=== PATIENT | male | born 1970 | race Two or more races ===

== ENCOUNTER 2024-11-24 13:39 | Inpatient (IN) | payer MEDICAID ==
[~2024-11-24] VITALS: Ht 165.1 cm; Wt 61.7 kg
[2024-11-24] MEDS ORDERED: ONDANSETRON HCL/PF 4 MG/2 ML VIAL ONE (14:10)
[2024-11-24] MEDS ORDERED: TDAP [DIPH/PERTUSSIS/TET] 0.5 ML VIAL IM ONE (14:10)
[2024-11-24] MEDS ORDERED: MORPHINE SULFATE INJ 4 MG/ML DISP.SYRIN ONE ×2 (14:10→14:33)
[2024-11-24] MEDS: ONDANSETRON HCL/PF 4 MG/2 ML VIAL IVP ONE (14:17)
[2024-11-24] MEDS: TDAP [DIPH/PERTUSSIS/TET] 0.5 ML VIAL IM ONE (14:17)
[2024-11-24] MEDS: MORPHINE SULFATE INJ 2 MG/ML DISP.SYRIN IV ONE (14:23)
[2024-11-24 14:31] LABS: BASOPHILS # (AUTO) 0.1 K/uL (0.0-0.2); BASOPHILS % (AUTO) 0.7 % (0.0-2.0); EOSINOPHILS # (AUTO) 0.1 K/uL (0.0-0.7); EOSINOPHILS % (AUTO) 0.9 % (0.0-6.0); HEMATOCRIT 48 % (39-51); HEMOGLOBIN 16.6 g/dL (13.5-17.5); LYMPHOCYTES % (AUTO) 31.4 % (20.0-44.0); MEAN CORPUSCULAR HEMOGLOBIN 33 PG (26.0-33.0); MEAN CORPUSCULAR HGB CONC 35 g/dl (31.0-36.0); MEAN CORPUSCULAR VOLUME 95 fL (80-96); MONOCYTES # (AUTO) 0.5 K/uL (0.1-1.30); MONOCYTES % (AUTO) 5.5 % (2.0-12.0); NEUTROPHILS # (AUTO) 5.9 K/uL (1.8-8.9); NEUTROPHILS % (AUTO) 61.5 % (43.0-81.0); PLATELET COUNT (AUTO) 300 K/uL (150-450); RED BLOOD CELL COUNT(AUTO) 5.05 MIL/uL (4.5-6.0); RED CELL DISTRIBUTION WIDTH 14.2 % (11.5-15.0); WHITE BLOOD COUNT (AUTO) 9.5 K/uL (4.3-11.0)
[2024-11-24] MEDS: IV NS 0.9% 1,000 ML BAG IV ONE (14:31)
[2024-11-24] MEDS: CEFAZOLIN 2 GM in IV D5W 100 ML IV ONE (14:31)
[2024-11-24 14:38] LABS: CALCIUM, SERUM 9.6 mg/dL (8.5-10.1); POTASSIUM 3.2 mmol/L (3.5-5.1)
[2024-11-24 14:48] LABS: PARTIAL THROMBOPLASTIN TIME 23.2 SEC (24.3-34.3); PROTHROMBIN TIME 10.6 SECS (9.2-11.1)
[2024-11-24] MEDS ORDERED: HYDROMORPHONE 1 MG/1 ML DISP.SYRIN ONE (15:42)
[2024-11-24] MEDS: HYDROMORPHONE 1 MG/1 ML DISP.SYRIN IV ONE (15:54)
[2024-11-24] MEDS ORDERED: ONDANSETRON HCL/PF 4 MG/2 ML VIAL IVP PRN (16:00)
[2024-11-24] MEDS ORDERED: ACETAMINOPHEN 325 MG TABLET PO PRN (16:00)
[2024-11-24] MEDS ORDERED: MAG HYDROX/AL HYDROX/SIMETH 30 ML UDC PO PRN ×2 (16:00→16:15)
[2024-11-24] MEDS ORDERED: MAGNESIUM HYDROXIDE 30 ML UDC PO PRN ×2 (16:00→16:15)
[2024-11-24] MEDS ORDERED: Z GUARD REMEDY 4 OZ OINT TP PRN ×2 (16:00→16:15)
[2024-11-24] MEDS ORDERED: VANCOMYCIN 1 GM VIAL ONE (19:01)
[2024-11-24] MEDS ORDERED: BUPIVACAINE 0.5 % PF 150 MG/30 ML VIAL ONE (19:01)
[2024-11-24] MEDS ORDERED: ANESTHESIA TRAY IN PYXIS 1 EA TRAY MC ONE (19:02)
[2024-11-24] MEDS ORDERED: MIDAZOLAM HCL 2 MG/2ML VIAL ONE (19:24)
[2024-11-24] MEDS ORDERED: FENTANYL PF 100MCG/2ML AMPUL ONE (19:24)
[2024-11-24 20:00] VITALS: BP 117/71; TEMP 98; O2SAT 98
[2024-11-24] MEDS: FENTANYL PF 100MCG/2ML AMPUL IV PRN (21:16)
[2024-11-24] MEDS ORDERED: CEFAZOLIN 1 GM ONE (23:54)
[2024-11-24] MEDS ORDERED: IV PREMIX D5 1/2NS + KCL 1,000 ML IV ONE (23:55)
[2024-11-25] MEDS: Potassium Chloride 20 MEQ in IV D5/0.45 NACL 1,000 ML IV PRN (01:10)
[2024-11-25] MEDS: HYDROCODONE/APAP 10/325MG TABLET PO PRN (01:55)
[2024-11-25] MEDS: CEFAZOLIN 1 GM in IV D5W 50 ML IV SCH (06:52)
[2024-11-25 08:00] VITALS: BP 101/65; TEMP 98.1; O2SAT 97
[2024-11-25] MEDS: Potassium Chloride 20 MEQ in IV D5/0.45 NACL 1,000 ML IV SCH ×2 (08:05→15:37)
[2024-11-25] MEDS ORDERED: MORPHINE SULFATE INJ 4 MG/ML DISP.SYRIN IV PRN (10:00)
[2024-11-25 11:15] VITALS: BP 101/65; TEMP 98.1; O2SAT 97
[2024-11-25] MEDS: ACETAMINOPHEN 325 MG TABLET PO PRN (14:26)
[2024-11-25] MEDS: ANCEF 1 GM/50 ML D5W IV SCH (15:37)
[2024-11-25 16:00] VITALS: BP 113/70; TEMP 98.4; O2SAT 96
[2024-11-25] MEDS ORDERED: FENTANYL PF 100MCG/2ML AMPUL IV ONE (21:30)
[2024-11-25 23:59] VITALS: BP 106/65; TEMP 99; O2SAT 97
[2024-11-26 08:00] VITALS: BP 112/78; TEMP 98.2; O2SAT 94
[2024-11-26] MEDS ORDERED: IBUP-2314 PO (11:34)
[2024-11-26 16:00] VITALS: BP 102/71; TEMP 97.6; O2SAT 94
[2024-11-26 21:41] VITALS: BP 101/64; TEMP 98.2; O2SAT 98
[2024-11-27 08:17] VITALS: BP 103/66; TEMP 97.9; O2SAT 98
[2024-11-27] MEDS: ONDANSETRON HCL/PF 4 MG/2 ML VIAL IVP PRN (08:46)
[2024-11-27 16:11] VITALS: BP 103/69; TEMP 98.6; O2SAT 97
[2024-11-27 20:49] VITALS: BP 110/64; TEMP 98.6; O2SAT 97
[2024-11-28 08:33] VITALS: BP 116/71; TEMP 99; O2SAT 97
[2024-11-28 16:10] VITALS: BP 112/74; TEMP 98.3; O2SAT 99
== END 2024-11-28 18:00 | disposition home or self-care (01) | DRG 313 ==
LOC: ER 13:47 → MED 22:15
PROVIDERS: ADMIT Internal Medicine; ATTEND Internal Medicine
PROC: 0QSG04Z Reposition Right Tibia with Internal Fixation Device, Open Approach (ICD-10-PCS; principal; 2024-11-24 19:00)
DX: S82.54XB Nondisplaced fracture of medial malleolus of right tibia, initial encounter for open fracture type I or II (principal); T79.7XXA Traumatic subcutaneous emphysema, initial encounter; E87.1 Hypo-osmolality and hyponatremia; E87.6 Hypokalemia; W11.XXXA Fall on and from ladder, initial encounter; Y92.009 Unspecified place in unspecified non-institutional (private) residence as the place of occurrence of the external cause; R79.89 Other specified abnormal findings of blood chemistry
CPT/HCPCS: 36415; 71045-TC; 73590-TC; 73600-TC; 73610-TC; 73630-TC; 80048-TC; 85025-TC; 85730-TC; 86850-TC; 90715; 97110-TC; 97116-TC; 97530-TC; 97535-TC; A4223; A6402; A6403; C1713; C1769; G0378; J0690; J1100; J1171; J1885; J2250; J2270; J2405; J2704; J2765; J3010; J3370; J3480; J3490; J7030; J7050; J7060